=== PATIENT | female | born 2000 | race Caucasian/White ===

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

== ENCOUNTER 2022-12-23 17:08 | Emergency (ER) | payer OTHER ==
[~2022-12-23] VITALS: Ht 160 cm; Wt 65.3 kg
[~2022-12-23 17:08] MED LIST changes: +[UNRECOGNIZED DRUG - CODE] TP
[2022-12-23 17:18] VITALS: BP 138/83; PULSE 81; RESP 18; TEMP 98.4; O2SAT 98
--- NOTE | 2022-12-23 17:18 | NUR ---
PT AMBULATED TO BED 8 W/STEADY GATE
--- NOTE | 2022-12-23 17:23 | NUR ---
22 YO F PRESENTS W/RT EYE SWELLING, DISCOMFORT, REDNESS, ITCHING, WATERY X 1DAY. PT DENIES VISUAL CHANGES, INJURY, SOLORZANO, DIZZINESS. SWELLING AND REDNESS NOTED TO RT UPPER EYE LID. SAFETY MAINTAINED. HX: DENIES NKA DENIES DAILY MEDS
[2022-12-23] MEDS ORDERED: ERYT5OIN51 OP (17:33)
--- NOTE | 2022-12-23 18:17 | NUR ---
Patient discharged with v/s stable. Written and verbal after care instructions given and explained. Patient alert, oriented and verbalized understanding of instructions. Ambulatory with steady gait. All questions addressed prior to discharge. ID band removed. Patient advised to follow up with PMD. Rx of ERYTHROMYCIN given. Opportunity to ask questions provided and answered.
[2022-12-23 18:18] VITALS: O2SAT 98
--- NOTE | 2022-12-23 18:18 | NUR ---
The patient's care was reviewed and supervised by She Das, RN, RN.
== END 2022-12-23 18:17 | disposition home or self-care (01) ==
LOC: MED 17:08
DX: H02.841 Edema of right upper eyelid (principal); H57.11 Ocular pain, right eye; R03.0 Elevated blood-pressure reading, without diagnosis of hypertension; Z79.899 Other long term (current) drug therapy; Z79.2 Long term (current) use of antibiotics; Z79.1 Long term (current) use of non-steroidal anti-inflammatories (NSAID)
CPT/HCPCS: 99283

== ENCOUNTER 2023-05-27 23:08 | Emergency (ER) | payer OTHER ==
[~2023-05-27] VITALS: Ht 160 cm; Wt 63.5 kg
[~2023-05-27 23:08] MED LIST changes: +ERYT5OIN51 OP
[2023-05-27 23:29] VITALS: BP 103/77; PULSE 95; RESP 16; TEMP 98.6; O2SAT 99
[2023-05-28 01:25] LABS: FLU A ANTIGEN negative (NEGATIVE); FLU B ANTIGEN NEGATIVE (NEGATIVE)
== END 2023-05-28 01:29 | disposition left against medical advice (07) ==
LOC: MED 23:08
DX: J02.9 Acute pharyngitis, unspecified (principal); Z20.822 Contact with and (suspected) exposure to COVID-19; Z53.21 Procedure and treatment not carried out due to patient leaving prior to being seen by health care provider
CPT/HCPCS: 99281

== ENCOUNTER 2023-10-02 10:51 | Emergency (ER) | payer MEDICAID, OTHER ==
[~2023-10-02] VITALS: Ht 160 cm; Wt 63.5 kg
[2023-10-02 11:01] VITALS: BP 121/72; PULSE 95; RESP 18; TEMP 98.2; O2SAT 99
[2023-10-02] MEDS ORDERED: SULF-59 PO (11:31)
[2023-10-02] MEDS ORDERED: BACTO TP (11:31)
[2023-10-02 11:36] VITALS: BP 113/75; PULSE 89; RESP 15; TEMP 98.2; O2SAT 99
== END 2023-10-02 11:36 | disposition home or self-care (01) ==
LOC: MED 10:51
DX: L03.011 Cellulitis of right finger (principal); Z79.899 Other long term (current) drug therapy
CPT/HCPCS: 99283